=== PATIENT | female | born 2000 | race Two or more races ===

== ENCOUNTER 2023-08-22 06:16 | Inpatient (IN) | payer OTHER, MEDICAID ==
[~2023-08-22] VITALS: Ht 157.5 cm; Wt 71.0 kg
[2023-08-22] VITALS (7 sets, daily range): BP systolic 104–117; BP diastolic 67–79; PULSE 66–83; RESP 12–20; TEMP 98–98.7; O2SAT 94–99
[2023-08-22 06:59] LABS: Urine Bacteria FEW /hpf (None Seen); Urine Blood Negative /uL (Negative); Urine Clarity Clear (Clear); Urine Color Colorless (Yellow); Urine Protein, UAD Negative (Negative); Urine Specific Gravity 1.014 (1.001-1.035); Urine Urobilinogen Normal (Negative); Urine WBC 1 /hpf (0 - 5)
[2023-08-22 07:42] LABS: Basophils # (auto) 0 10 ^3/uL (0-0.2); Basophils % (auto) 0.6 % (0.0-2.0); Eosinophils # (auto) 0.3 10 ^3/uL (0-0.8); Hematocrit 38.3 % (36.0-46.0); Hemoglobin 13.6 g/dL (12.2-16.2); Mean Corpuscular Hemoglobin 30.8 pg (28.0-32.0); Mean Corpuscular Hgb Conc. 35.6 g/dL (32.0-36.0); Mean Corpuscular Volume 86.4 fL (80.0-100.0); Monocytes # (auto) 0.5 10 ^3/uL (0-1.3); Monocytes % (auto) 7.1 % (0.0-12.0); Neutrophils # (auto) 3.7 10 ^3/uL (1.6-8.6); Neutrophils % (auto) 49.3 % (37.0-80.0); Red Blood Cells 4.43 10^6/uL (4.0-5.20); Red Cell Distribution Width 13.4 % (11.8-14.3); White Blood Cell 7.6 10^3/uL (4.4-10.8)
[2023-08-22 07:51] LABS: Alanine Aminotransferase 12 U/L (7-40); Albumin 4.4 g/dL (3.2-4.8); Alkaline Phosphatase 41 U/L (46-116); Anion Gap 4 (5-15); Aspartate Aminotransferase 9 U/L (13-40); BUN/Creatinine Ratio 15.1 (10.0-20.0); Blood Urea Nitrogen 8 mg/dL (9-23); Calcium 10.5 mg/dL (8.7-10.4); Carbon Dioxide 26 mmol/L (20-30); Chloride 107 mmol/L (98-107); Glucose 97 mg/dL (74-106); Lipase 44 U/L (12-53); Potassium 3.8 mmol/L (3.5-5.1); Sodium 137 mmol/L (136-145)
[2023-08-22] MEDS: PANTOPRAZOLE 40 MG/10 ML VIAL INJ IV ONE (07:51)
[2023-08-22 07:52] LABS: Bilirubin, Total 0.4 mg/dL (0.2-1.0); Total Protein 7.2 g/dL (5.7-8.2)
[2023-08-22] MEDS: ONDANSETRON HCL 4 MG/2 ML VIAL IV ONE (07:52)
[2023-08-22] MEDS: MORPHINE SULFATE 4 MG/ML SYR/VIAL IV ONE (07:52)
[2023-08-22] MEDS ORDERED: ONDANSETRON HCL 4 MG/2 ML VIAL IV PRN (09:15)
[2023-08-22] MEDS ORDERED: MORPHINE SULFATE INJ 2 MG/ml SYRG IV PRN (09:15)
[2023-08-22] MEDS ORDERED: ACETAMINOPHEN 325 MG TAB PO PRN ×2 (09:15)
[2023-08-22] MEDS ORDERED: HYDROcodone-ACET 5/325MG TAB PO PRN (09:15)
[2023-08-22] MEDS: SODIUM CHLORIDE 0.9% 1,000 ML IV SCH (09:30)
[2023-08-22 09:44] LABS: INR 0.99 (0.9-1.15); Prothrombin Time 10.5 sec (9.3-11.8)
[2023-08-22] MEDS: PANTOPRAZOLE 40 MG/10 ML VIAL INJ IV SCH (09:51)
[2023-08-23] VITALS (7 sets, daily range): BP systolic 111–157; BP diastolic 71–78; PULSE 73–94; RESP 16–20; TEMP 97.1–98.8; O2SAT 95–99
[2023-08-23 06:09] LABS: Basophils # (auto) 0 10 ^3/uL (0-0.2); Basophils % (auto) 0.6 % (0.0-2.0); Eosinophils # (auto) 0.2 10 ^3/uL (0-0.8); Hematocrit 38.5 % (36.0-46.0); Hemoglobin 13.4 g/dL (12.2-16.2); Lymphocytes # (auto) 2.6 10 ^3/uL (0.4-5.4); Lymphocytes % (auto) 46.8 % (10.0-50.0); Mean Corpuscular Hemoglobin 30.3 pg (28.0-32.0); Mean Corpuscular Hgb Conc. 34.7 g/dL (32.0-36.0); Mean Corpuscular Volume 87.3 fL (80.0-100.0); Monocytes # (auto) 0.4 10 ^3/uL (0-1.3); Monocytes % (auto) 7.1 % (0.0-12.0); Neutrophils # (auto) 2.3 10 ^3/uL (1.6-8.6); Neutrophils % (auto) 41.5 % (37.0-80.0); Nucleated Red Blood Cells % 0.1 %; Red Blood Cells 4.41 10^6/uL (4.0-5.20); White Blood Cell 5.5 10^3/uL (4.4-10.8)
[2023-08-23 06:19] LABS: Alanine Aminotransferase 15 U/L (7-40); Alkaline Phosphatase 40 U/L (46-116); Anion Gap 6 (5-15); Calcium 9.1 mg/dL (8.5-10.1); Carbon Dioxide 22 mmol/L (20-30); Chloride 109 mmol/L (98-107); Glucose 73 mg/dL (74-106); Potassium 3.8 mmol/L (3.5-5.1); Sodium 137 mmol/L (136-145)
[2023-08-23 06:20] LABS: Albumin 4.1 g/dL (3.2-4.8); Aspartate Aminotransferase 11 U/L (13-40); Bilirubin, Total 0.6 mg/dL (0.2-1.0); Total Protein 6.5 g/dL (5.7-8.2)
[2023-08-23 06:31] LABS: BUN/Creatinine Ratio 11.4 (10.0-20.0); Blood Urea Nitrogen < 5 mg/dL (9-23)
[2023-08-24 03:25] LABS: Amphetamine Screen, Urine Neg (NEGATIVE); Barbiturate Scree,Urine Neg (NEGATIVE); Benzodiazephine Screen, Urine Neg (NEGATIVE); Cannabinoid Screen, Urine Neg (NEGATIVE); Cocaine Screen, Urine Neg (NEGATIVE); Opiate Scree,Urine Neg (NEGATIVE); Phencyclidine Screen, Urine Neg (NEGATIVE)
[2023-08-24 05:08] VITALS: BP 104/60; PULSE 96; RESP 18; TEMP 98.2; O2SAT 98
[2023-08-24 08:00] VITALS: PULSE 85; RESP 16; O2SAT 95
[2023-08-24 08:16] VITALS: BP 107/67; PULSE 85; RESP 17; TEMP 98.1; O2SAT 98
[2023-08-24 11:38] VITALS: BP 117/78; PULSE 97; RESP 18; TEMP 98.7; O2SAT 98
[2023-08-24 21:01] VITALS: BP 106/74; PULSE 93; RESP 20; TEMP 98.7; O2SAT 99
[2023-08-25 01:00] VITALS: BP 103/67; PULSE 96; RESP 20; TEMP 98.6; O2SAT 99
[2023-08-25 05:00] VITALS: BP 109/71; PULSE 100; RESP 20; TEMP 98; O2SAT 99
[2023-08-25] MEDS ORDERED: METR-344 PO (08:08)
[2023-08-25] MEDS ORDERED: TRAM50TA2 PO (08:08)
[2023-08-25] MEDS ORDERED: LEVO500T91 PO (08:08)
[2023-08-25 08:09] VITALS: BP 106/77; PULSE 74; RESP 19; TEMP 98.8; O2SAT 99
[2023-08-25 11:18] VITALS: BP 106/77; PULSE 74; RESP 19; TEMP 98.8; O2SAT 99
[2023-08-25 11:50] VITALS: BP_SYST 118; BP_SYST 148; BP_DIAS 78; BP_DIAS 87; PULSE 74; PULSE 89; RESP 18; TEMP 98.4; O2SAT 100; O2SAT 91
== END 2023-08-25 13:30 | disposition home or self-care (01) | DRG 446 ==
LOC: ER 06:16 → OVERFLOW 09:13 → EAST 10:15 → WEST WING 16:41
PROVIDERS: ADMIT Registered Nurse; ATTEND Family Medicine
DX: K82.8 Other specified diseases of gallbladder (principal); K76.0 Fatty (change of) liver, not elsewhere classified; R19.7 Diarrhea, unspecified; E86.0 Dehydration
CPT/HCPCS: 36415; 76705; 80053; 80307; 80320; 81001; 82150; 83690; 84702; 85025; 85610; 96374; 96375; C9113; G0378; J2405